=== PATIENT | male | born 1950 | race Caucasian/White ===

== ENCOUNTER 2024-05-21 06:30 | Day surgery (SDC) | payer MEDICARE, SELFPAY ==
[2024-05-21] VITALS (9 sets, daily range): BP systolic 128–178; BP diastolic 54–80; BMI 23.9
[2024-05-21] MEDS: TYLENOL 1000 MG PO (08:58)
[2024-05-21] MEDS: NORMOSOL-R/PLASMALYTE-A 1000 IV (08:59)
--- NOTE | 2024-05-21 11:31 | OR.RPT ---
Operative Report
Operative Report
Primary Surgeon: Shonda
Assisting: Sussy REDDY
Pre-op Diagnosis: Left inguinal hernia
Post-op Diagnosis: Same
Procedure Performed: Robot assisted laparoscopic repair of left inguinal hernia
Anesthesia Type: GETA
Specimen / Cultures: None
Estimated Blood Loss: 10cc
Complications: None immediate
Operative Findings: Indirect defect, completely reduced, no cord lipoma, XL MID 3D Max
Date of surgery: 05/21/24
Indications:� This 73M developed symptomatic left inguinal hernia. Robot assisted laparoscopic repair was planned.
Description of procedure:� The patient was taken to the operating room and positioned into supine position. Sutton placed. The patient�s abdomen was prepped and draped in standard sterile fashion. A time-out was completed verifying correct patient,
procedure, site, positioning, and implants and special equipment prior to beginning this procedure.� The hernia was manually reduced after induction. A stab incision was made in the left upper quadrant, a Veress needle was inserted and proper
position was confirmed by aspiration and saline drop test. Following this, pneumoperitoneum was created with insufflation of carbon dioxide to 12 mmHg. Then a 8mm robotic trocar was inserted above and to the left of the umbilicus. A laparoscope was
inserted and the area of initial trocar entry and Veress needle placement were both inspected and no injuries were found. Two 8mm trocars were then placed lateral to the rectus sheath under direct visualization.
Both inguinal regions were inspected and the median umbilical ligament, medial umbilical ligament, and lateral umbilical fold were identified. Attention was turned to the left groin where a defect was identified. The peritoneum was incised
transversely above the defect and a flap was developed in the caudad direction. Gautam�s ligament was identified ultimately dissected to its junction with the iliac vein and the space of Retzius was developed bluntly.�The dissection was continued
inferiorly to the iliopubic tract, with care taken to avoid injury to the femoral branch of the genitofemoral nerve and the lateral femoral cutaneous nerve. The cord structures were parietalized.
The direct space was inspected and no hernia was identified. The femoral space was inspected no defect was identified.� The indirect space was inspected and a hernia was identified and reduced by gentle traction. The sac was large and deep but
ultimately totally reduced. The canal was inspected and no cord lipoma was identified.
Extra large left MID 3D max mesh was passed through a trocar. The mesh was placed into the preperitoneal space and moved into position to lay flat and completely cover the direct, indirect, and femoral spaces with overlap at the midline. The mesh
was secured into place using 2-0 vicryl suture to Gautam�s ligament medially and laterally. Care was taken to avoid the inferolateral triangles containing the iliac vessels and genital nerves. The peritoneal flap was closed over the mesh and secured
with 2-0 monocryl stratafix suture in similar positions of safety. Inferior flap rents, small, were identified at the right inferior flap and left medial inferior flap, these were closed with monocryl 2-0 stratafix suture. A 14g angiocath was used
to decompress the preperitoneal space revealing good seal and all mesh in good position without folding or curling.
After ensuring adequate hemostasis, the trocars were removed and the pneumoperitoneum allowed to escape. The trocar incisions were closed at the skin level using 4-0 monocryl and topical skin adhesive. Sutton removed. All counts were correct and the
patient tolerated the procedure well and was taken to the postanesthesia care unit in stable condition.
== END 2024-05-21 14:48 | disposition home or self-care (01) ==
LOC: SDS 06:30
PROVIDERS: ATTENDING PHYSICIAN Surgery; FAMILY PHYSICIAN Family Medicine
DX: K40.90 Unilateral inguinal hernia, without obstruction or gangrene, not specified as recurrent (principal)
CPT/HCPCS: 49650; C1781

== ENCOUNTER 2024-09-25 15:40 | Emergency (ER) | payer MEDICARE, SELFPAY ==
[2024-09-25 15:49] VITALS: BP 133/107
--- NOTE | 2024-09-25 18:07 | ED.GENMED ---
History of Present Illness
General
Chief Complaint: Fall
Time Seen by Provider: 09/25/24 16:25
History of Present Illness
History of Present Illness:
74-year-old male with history of COPD presents to the emergency department for evaluation of facial injuries and right chest wall pain after a fall 5 days ago. He states he tripped in his driveway while taking out the trash. Landed on his face.
Denies LOC. Did not have anybody to drive him to the hospital so he waited until today when a family friend advised him to come to the hospital. Denies headache or dizziness at this time.
Past History
Past History
ED Past Medical History: CAD, Cancer, Hypercholesterolemia and Hypothyroidism
ED Past Surgical History: Cardiac
Social History
Tobacco: Smoker
Alcohol: None
Drug: None
Personal:
Living: with family
Employment: Other (Noncontributory)
Family History
Family History: Hypertension
Review of Systems
Review of Systems
Allergies reviewed?: Yes
All Other Systems: ROS reviewed and negative except as documented in HPI and ROS
Phy Exam
Physical Exam
Physical Exam:
GEN: Well appearing, NAD, WDWN
HEENT: Widespread ecchymosis periorbital bilaterally as well as to the right forehead and right zygomatic maxillary area oral mucosa moist, no scleral icterus, no nasal congestion
Cardiac: Regular rate
Lung: No respiratory distress, no tachypnea
MSK: No gross deformity or injuries
Skin: Good color, no pallor or jaundice, no rashes
Neuro: AO x3; CN II-XII grossly intact. BUE strength 5/5 in all pinto, sensation intact and symmetric. BLE strength 5/5 in all pinto, sensation intact and symmetric
Psych: Calm, cooperative
Course
Orders/Labs/Results
Orders:
Orders
09/25/24 15:58
CT Head W/o Iv Contrast Urgent
Comment:
Reason For Exam: fall, bruising, pain
09/25/24 17:26
CR Ribs-right 3 Vw W/pa Chest* Urgent
Comment:
Reason For Exam: fall
Vital Signs
Initial and Last Documented VS:
Initial Vital Signs
Temp Pulse Resp BP Pulse Ox
97.6 F 73 18 133/107 99
09/25/24 15:49 09/25/24 15:49 09/25/24 15:49 09/25/24 15:49 09/25/24 15:49
Last Documented Vital Signs
Temp Pulse Resp BP Pulse Ox
97.6 F 73 18 133/107 99
09/25/24 15:49 09/25/24 15:49 09/25/24 15:49 09/25/24 15:49 09/25/24 15:49
MDM/Problems Addressed
MDM/Problems Addressed:
Imaging shows no evidence of acute intracranial hemorrhage. X-ray reveals right-sided rib fractures, he has minimal right-sided difficulty breathing thus does not require patient hospitalization for further pain control
*Critical Care Note
Total Time (30-74mins, 75-104mins- exclusive of procedures): Not Applicable
ED Attending Note
-
Portions of this chart may have been created with voice recognition software.� Occasional wrong word or��sound alike� substitutions may have occurred due to the inherent limitations of voice recognition software.
Discharge Plan
Departure
Patient Disposition: Home (Routine Discharge)
Date of Disposition: 09/25/24
Time of Disposition: 18:07
Patient with high blood pressure during this ER visit?: No
Discharge Problem:
Closed head injury, Right rib fracture
Instructions: Rib Fracture
Prescriptions:
No Action
levothyroxine 100 MCG tablet
88 mcg PO DAILY AT 0700
aspirin 81 MG tablet,chewable
81 mg PO HS
escitalopram oxalate 20 MG tablet
20 mg PO DAILY
metoprolol succinate 25 MG tablet extended release 24 hr
25 mg PO DAILY
nitroglycerin 0.4 MG tablet, sublingual
0.4 mg sublingual Q4H PRN (Reason: for chestpain and SOB)
Patient Comments:
Pt has RX, but has never used.
atorvastatin 40 mg Tablet
40 mg PO QPM
Trelegy Ellipta 200-62.5-25 mcg Blister With Device
1 inh INHALATION DAILY
oxycodone 5 mg tablet
5 - 10 mg PO Q4HPRN PRN (Reason: moderate to severe pain) Qty: 12 0RF
Referrals:
Demar Estrada MD [Family Provider] -
Interventions
Interventions:
*Risk Screen - Suicide Last Done: 09/25/24 15:49
*General Assessment Last Done: 09/25/24 18:19
*Neglect/Abuse Screening Last Done: 09/25/24 18:19
ED- Fall Risk Assessment Last Done: 09/25/24 18:19
*ED COVID-19 Vaccine History Last Done: 09/25/24 18:19
*Nursing Disposition Last Done: 09/25/24 18:19
ED-Musculoskeletal Assessment Last Done: 09/25/24 18:19
ED- Neurological Assessment Last Done: 09/25/24 17:06
ED-Skin Assessment Last Done: 09/25/24 18:19
Discharge Date and Time
Discharge Date/Time: 09/25/24 18:20
Print Language: EQUATORIAL GUINEAN
== END 2024-09-25 18:20 | disposition home or self-care (01) ==
LOC: EMR 15:40
PROVIDERS: EMERGENCY PHYSICIAN Emergency Medicine; FAMILY PHYSICIAN Family Medicine
DX: S09.90XA Unspecified injury of head, initial encounter (principal); S22.41XA Multiple fractures of ribs, right side, initial encounter for closed fracture; W01.0XXA Fall on same level from slipping, tripping and stumbling without subsequent striking against object, initial encounter; J44.9 Chronic obstructive pulmonary disease, unspecified; F17.200 Nicotine dependence, unspecified, uncomplicated
CPT/HCPCS: 99284; 70450; 71101

== ENCOUNTER → 2025-04-10 12:31 | Outpatient (REF) | payer MEDICARE, SELFPAY | LOC: RAD 12:31 | PROVIDERS: FAMILY PHYSICIAN Family Medicine | DX: D75.89 Other specified diseases of blood and blood-forming organs (principal); T14.8XXA Other injury of unspecified body region, initial encounter | CPT/HCPCS: 71260; Q9967 ==

== ENCOUNTER 2025-04-21 18:54 | Emergency (ER) | payer MEDICARE, SELFPAY ==
[2025-04-21] VITALS (11 sets, daily range): BP systolic 103–127; BP diastolic 59–75; PULSE 75–82; BMI 22.2
[2025-04-21 19:14] LABS: Hematocrit 36.5 % (39.0-52.0); Hemoglobin 12.4 g/dL (13.0-18.0); Mean Corp Hgb Conc. 34.0 g/dL (33.0-37.0); Mean Corpuscular Volume 100.6 fL (80.0-94.0); Nucleated Red Blood Cells % 0 % (-); Platelet Count 180 10^3/uL (130-400); Red Cell Dist. Width 13.2 % (11.5-14.5)
[2025-04-21 19:30] LABS: ALT (SGPT) 25 U/L (0-50); AST (SGOT) 25 U/L (17-59); Albumin 3.6 g/dl (3.5-5.0); Alkaline Phosphatase 58 U/L (38-126); Blood Urea Nitrogen 18 mg/dl (9-20); Calcium 8.7 mg/dl (8.4-10.2); Carbon Dioxide 23 mmol/L (22-30); Chloride 107 mmol/L (98-107); Estimated Creatinine Clearance 59 ml/min; Glucose 83 mg/dl (70-99); Potassium 4.4 mmol/L (3.5-5.1); Sodium 136 mmol/L (135-145); Total Protein 5.7 g/dl (6.3-8.2); eGFR > 60.00
--- NOTE | 2025-04-21 21:30 | ED.GENMED ---
History of Present Illness
General
Chief Complaint: Fainting/Passed Out
Source: patient
Exam Limitations: none
Time Seen by Provider: 04/21/25 19:03
Nursing documentation reviewed up to this point in time: agreed with
History of Present Illness
History of Present Illness:
Note:
CHIEF COMPLAINT(S)
Syncope episode at a gas station.
HISTORY OF PRESENT ILLNESS
The patient is a 74-year-old male with a history of lung cancer in remission, presenting after a syncopal episode at a gas station. The patient did not hit his head and lowered himself to the ground. Prior to the event, the patient spent the day
golfing, during which he consumed some alcohol and smoked marijuana. He reports not having eaten much on that day. The patient states that he feels better now after drinking water, attributing the syncope to possible dehydration or lack of food
intake. He experienced no chest pain or abnormal sensations during the event.
CHRONIC MEDICAL CONDITIONS SIGNIFICANTLY AFFECTING CARE
1. Thyroid disorder on levothyroxine.
2. History of lung cancer in remission with annual CT scans.
MEDICATIONS
1. Levothyroxine
2. Atenolol
SOCIAL HISTORY
The patient consumes alcohol occasionally, mentioning having a couple of beers while golfing. He also smokes marijuana, having a medical prescription, and smokes approximately a pack of cigarettes a day.
PHYSICAL EXAM
General: Alert, no acute distress.
Skin: Warm, dry.
Head: Normocephalic, atraumatic.
Neck: Supple, trachea midline.
Eye Ears, nose, mouth and throat: Oral mucosa moist.
Cardiovascular: Normal peripheral perfusion, no edema.
Respiratory: Respirations are non-labored.
Gastrointestinal : Abdomen nondistended.
Back: Normal range of motion, normal alignment.
Musculoskeletal: Normal range of motion, normal strength.
Neurological: Alert and oriented to person, place, time, and situation, no focal neurological deficit observed.
Psychiatric: Cooperative, appropriate mood & affect.
PLAN
Monitor vital signs and observe the patients recovery. If stable, plan for discharge with recommendations to ensure adequate hydration and nutrition, especially during physically active days.
DIFFERENTIAL DIAGNOSIS
The Differential Diagnosis includes, in no particular order and is not limited to:
1. Dehydration
2. Orthostatic hypotension
3. Medication effect
4. Alcohol use
5. Marijuana use
6. Hypoglycemia
7. Vasovagal syncope
8. Cardiac arrhythmia
9. Postprandial hypotension
10. Acute coronary syndrome
Disposition:
SUMMARY OF ENCOUNTER
The patient, a 74-year-old male, presented to the emergency department after experiencing a near-syncopal episode at a gas station. He had spent the day golfing, during which he consumed alcohol and smoked marijuana. The patient reported inadequate
hydration and did not hit his head during the incident. Upon arrival at the hospital, he was asymptomatic. During his ED stay, the patient was evaluated and received fluids. He was able to ambulate around the department with ease and reported
feeling back to normal. Orthostatic vital signs were normal.
DISPOSITION
Discharge to home in improved condition.
ASSESSMENT
The episode was likely due to dehydration exacerbated by alcohol and marijuana use.
EMERGENCY TREATMENTS ADMINISTERED
Fluids were administered.
PLAN
Monitor the patient�s hydration and nutrition, especially on days with increased physical activity. Ensure adequate fluid intake during similar future activities.
PATIENT EDUCATION AND COUNSELING
Discussed the importance of staying hydrated and maintaining proper nutrition, particularly during and after engaging in physically demanding activities such as golfing. Advised to limit alcohol consumption and be cautious with marijuana use.
FOLLOW-UP INSTRUCTIONS
Patient advised to follow-up with his primary care physician if symptoms recur.
MEDICATION RECONCILIATION
1. Levothyroxine
2. Atenolol
MEDICAL DECISION MAKING
-Complexity of Data Reviewed: Chronic conditions affecting care include thyroid disorder on levothyroxine and history of lung cancer in remission.
-Data:
Category 1
My independent review of orthostatic vital signs is normal.
-Risk:
Consideration of Admission/Observation: Escalation of care including admission/observation was considered given the complexity and risk of the patients presenting complaint, exam findings, and their underlying comorbidities. However, ultimately I
feel the patient is safe for outpatient management with close follow up. Reasoning: Work-up reassuring, does not reveal any acute life/organ-threatening processes, patients symptoms well controlled upon reevaluation, reexamination is reassuring,
vitals are stable, patient agreeable with discharge, reliable for follow-up.
DIAGNOSIS
Near-syncopal episode likely due to dehydration, ICD-10 R55
Alcohol use, ICD-10 F10.929
Cannabis use, ICD-10 F12.90
Past History
Past History
ED Past Medical History: CAD, Cancer, Hypercholesterolemia and Hypothyroidism
ED Past Surgical History: Cardiac
Social History
Tobacco: Smoker
Alcohol: None
Drug: None
Personal:
Living: with family
Employment: Other (Noncontributory)
Family History
Family History: Hypertension
Phy Exam
General Physical Exam
General Presentation: well appearing and no apparent distress
General Skin: warm and dry
General Habitus: normal
General Mental: alert
General Hydration: appears well hydrated
ENT Exam
ENT Exam: EOMI, pharynx normal, neck supple and normocephalic
Eye Exam
Eye Exam: PERRL, cornea clear and conjunctiva normal
Cardiovascular Exam
Cardiovascular Exam: regular rate/rhythm, no edema, no murmur and normal peripheral pulses
Pulmonary Exam
Pulmonary Exam: lungs clear, no respiratory distress, no rales, no crackles, no rhonchi, no stridor, no wheezing and no cough
Gastrointestinal Exam
Gastrointestinal Exam: normal bowel sounds, non tender, soft, no organomegaly, no pulsatile mass and non distended
Neurological Exam
Neurological Exam: alert, oriented x3, no motor deficits and speech normal
Musculoskeletal Exam
Musculoskeletal Exam: full ROM and no edema
Skin Exam
Skin Exam: normal color, warm/dry, no rash and no petechia
Psychiatric Exam
Psychiatric Exam: normal mood/affect
Course
Orders/Labs/Results
Orders:
Orders
04/21/25 19:04
Electrocardiogram (*1) Urgent
Reason for Study: Fatigue / Weakness
EKG- Treatment ONCE
04/21/25 19:05
Complete Blood Count/With Diff Urgent
Comprehensive Metabolic Panel Urgent
04/21/25 20:43
Orthostatic VS- Treatment ONCE
Abnormal Lab Results
04/21/25
19:05
RBC 3.63 L 10^6/uL
(4.70-6.10)
Hgb 12.4 L g/dL
(13.0-18.0)
Hct 36.5 L %
(39.0-52.0)
MCV 100.6 H fL
(80.0-94.0)
MCH 34.2 H pg
(27.0-31.0)
Absolute Monos (auto) 0.7 H 10^3/uL
(0.1-0.6)
Monocytes % 10.8 H %
(1.7-9.3)
Total Protein 5.7 L g/dl
(6.3-8.2)
04/21/25 19:05
04/21/25 19:05
Vital Signs
Initial and Last Documented VS:
Initial Vital Signs
Temp Pulse Resp BP Pulse Ox
97.8 F 92 20 103/67 100
04/21/25 18:57 04/21/25 18:57 04/21/25 18:57 04/21/25 18:57 04/21/25 18:57
Last Documented Vital Signs
Temp Pulse Resp BP Pulse Ox
97.8 F 81 19 119/60 98
04/21/25 18:57 04/21/25 21:05 04/21/25 21:05 04/21/25 21:05 04/21/25 21:02
*Pulse Oximetry
SaO2: 98
Oxygen Mode of Delivery: Room air
Patient hypoxic: no
*Critical Care Note
Total Time (30-74mins, 75-104mins- exclusive of procedures): Not Applicable
ED Attending Note
-
Portions of this chart may have been created with voice recognition software.� Occasional wrong word or��sound alike� substitutions may have occurred due to the inherent limitations of voice recognition software.
Discharge Plan
Departure
Patient Disposition: Home (Routine Discharge)
Date of Disposition: 04/21/25
Time of Disposition: 21:30
Patient with high blood pressure during this ER visit?: Yes
Discharge Problem:
Syncope and collapse
Instructions: Syncope (Fainting) (DC), BLOOD PRESSURE
Prescriptions:
No Action
levothyroxine 100 MCG tablet
88 mcg PO DAILY AT 0700
aspirin 81 MG tablet,chewable
81 mg PO HS
escitalopram oxalate 20 MG tablet
20 mg PO DAILY
metoprolol succinate 25 MG tablet extended release 24 hr
25 mg PO DAILY
nitroglycerin 0.4 MG tablet, sublingual
0.4 mg sublingual Q4H PRN (Reason: for chestpain and SOB)
Patient Comments:
Pt has RX, but has never used.
atorvastatin 40 mg Tablet
40 mg PO QPM
Trelegy Ellipta 200-62.5-25 mcg Blister With Device
1 inh INHALATION DAILY
oxycodone 5 mg tablet
5 - 10 mg PO Q4HPRN PRN (Reason: moderate to severe pain) Qty: 12 0RF
Referrals:
Demar Estrada MD [Family Provider, Family Practice]
Activity Restrictions/Additional Instructions:
Thank You for choosing [facility].
It was a pleasure meeting you and taking part in your care. We hope for your continued healing and wellness.
Please read discharge instructions in their entirety. However, they are for general education and may not describe your exact diagnosis at discharge. Information on your ER visit and medical conditions were discussed with you along with appropriate
follow up information...
If indicated, please take your medications as instructed and indicated on discharge paperwork.
Please schedule a follow up appointment as directed. Call to schedule an appointment
Please return to the emergency department with ANY change in, persisting, or worsening of symptoms. If any of your symptoms do not improve, or persist, or become more severe within 6-12 hours, please return to the emergency department for further
care.
Please return to the emergency department if you develop a headache, neck pain/stiffness, fever greater than 100.4F, chest pain, shortness of breath, persistent nausea, vomiting, slurred speech, difficulty walking, numbness/tingling, weakness, signs
of infection or any other symptoms that are worrisome to you.
If you have any questions or concerns please do not hesitate to call the Hospital at or E-mail me directly at [email or web address]
Interventions
Interventions:
*Risk Screen - Suicide Last Done: 04/21/25 18:57
*General Assessment Last Done: 04/21/25 18:57
*Neglect/Abuse Screening Last Done: 04/21/25 18:57
*ED- Fall Risk Assessment Last Done: 04/21/25 18:57
ED- Cardiac Assessment Last Done: 04/21/25 18:57
ED- Neurological Assessment Last Done: 04/21/25 18:57
Discharge Date and Time
Print Language: HUNGARIAN
== END 2025-04-21 21:53 | disposition home or self-care (01) ==
LOC: EMR 18:54
PROVIDERS: EMERGENCY PHYSICIAN Student in an Organized Health Care Education/Training Program; FAMILY PHYSICIAN Family Medicine
DX: R55 Syncope and collapse (principal); I25.10 Atherosclerotic heart disease of native coronary artery without angina pectoris; E78.00 Pure hypercholesterolemia, unspecified; E03.9 Hypothyroidism, unspecified; F17.210 Nicotine dependence, cigarettes, uncomplicated; Z79.82 Long term (current) use of aspirin; Z85.118 Personal history of other malignant neoplasm of bronchus and lung; Z82.49 Family history of ischemic heart disease and other diseases of the circulatory system
CPT/HCPCS: 99284; 80053; 85025; 93005

== ENCOUNTER → 2025-05-13 10:23 | Outpatient (REF) | payer MEDICARE, SELFPAY | LOC: RCS 10:23 | PROVIDERS: ATTENDING PHYSICIAN Internal Medicine Cardiovascular Disease; FAMILY PHYSICIAN Family Medicine | DX: I25.10 Atherosclerotic heart disease of native coronary artery without angina pectoris (principal); Z85.118 Personal history of other malignant neoplasm of bronchus and lung; J43.2 Centrilobular emphysema; R55 Syncope and collapse | CPT/HCPCS: 93225; 93226 ==

== ENCOUNTER → 2025-05-15 13:03 | Outpatient (REF) | payer MEDICARE, SELFPAY | LOC: HWRCS 13:03 | PROVIDERS: ATTENDING PHYSICIAN Internal Medicine Cardiovascular Disease; FAMILY PHYSICIAN Family Medicine | DX: I25.10 Atherosclerotic heart disease of native coronary artery without angina pectoris (principal); Z85.118 Personal history of other malignant neoplasm of bronchus and lung; J43.2 Centrilobular emphysema; R55 Syncope and collapse | CPT/HCPCS: 93306 ==